=== PATIENT | female | born 1960 | race Caucasian/White ===

== ENCOUNTER → 2017-11-16 11:49 | Outpatient (CLI) | payer OTHER, SELFPAY ==
--- NOTE | 2017-11-16 | DI.MG.S_ITS ---
BILATERAL DIGITAL SCREENING MAMMOGRAM 3D/2D WITH CAD WITH AUGMENTATION: 11/16/2017 CLINICAL: Routine screening. Family history of breast cancer. Comparison is made to exams dated: 11/12/2016 mammogram, 11/26/2015 mammogram, and 11/23/2014 mammogram - [facility]. The tissue of both breasts is predominantly fatty. Current study was also evaluated with a Computer Aided Detection (CAD) system. Bilateral breast implants are stable and intact. No significant masses, calcifications, or other findings are seen in either breast. There has been no significant interval change. IMPRESSION: NEGATIVE There is no mammographic evidence of malignancy. A 1 year screening mammogram is recommended. This exam was interpreted at Station ID: [id number]. NOTE: For mammograms, a report in lay terms will be sent to the patient. Approximately 15% of breast malignancies will not be visualized mammographically. In the management of a palpable breast mass, a negative mammogram must not discourage biopsy of a clinically suspicious lesion. Electronically Signed By: Charlie allen/johnny:11/16/2017 15:06:50 letter sent: Normal Exam ACR BI-RADS Category 1: Negative [id number]
== END ==
PROVIDERS: Family Provider Family Medicine; PCP Family Medicine; Visit Provider Family Medicine
DX: Z12.31 Encounter for screening mammogram for malignant neoplasm of breast (principal); Z80.3 Family history of malignant neoplasm of breast
CPT/HCPCS: 77063; 77067

== ENCOUNTER → 2017-11-30 07:53 | Outpatient (CLI) | payer OTHER, SELFPAY ==
--- NOTE | 2017-11-30 | DI.ECHO.S_ITS ---
[facility] +---------+ : : [address] : [place] : : : : [id number] : : : : Phone: [phone]+ Echocardiogram Report + + :Name: PA CONSTANTINO Study Date: 11/30/2017 Height: 66 in : :[facility] Weight: 180 lb : : Gender: Female BSA: 1.9 m2 : :: 1960 Age: 56 yrs BP: 138/90 mmHg: :Reason For Study: Hypertension : : Performed By: Daniela Ingram : :Referring: DENY VERNON : + + Interpretation Summary 1) Normal left ventricular thickness, size, wall motion, and systolic function (EF 60-65%). 2) Normal right ventricular size and function. 3) No significant valvular abnormalities. 4) No prior Echo available for comparison. Procedure: A two-dimensional transthoracic echocardiogram with color flow and Doppler was performed. The study quality was technically adequate. There is no prior echocardiogram noted for this patient. The patient was in normal sinus rhythm during the exam. Left Ventricle: The left ventricle is normal in size, wall thickness, and systolic function without any focal wall motion abnormalities. The ejection fraction is estimated to be 60-65%. Assessment of diastolic parameters indicates normal left ventricular diastolic function and normal filling pressures. Right Ventricle: The right ventricle grossly appears normal in size with probable normal systolic function. Atria: The left atrial size is normal. Right atrial size is normal. The interatrial septum is intact with no evidence for an atrial septal defect. Mitral Valve: The mitral valve is grossly normal. There is trace mitral regurgitation. Aortic Valve: The aortic valve is trileaflet. The aortic valve opens well. No aortic regurgitation is present. Tricuspid Valve: The tricuspid valve is normal in structure and function. There is trace tricuspid regurgitation. The right ventricular systolic pressure is estimated at 25 mmHg assuming a right atrial pressure of 3 mm Hg. Pulmonic Valve: The pulmonic valve is not well seen, but is grossly normal. There is mild pulmonic regurgitation. Great Vessels: The aortic root is normal size. The dimensions of the ascending aorta are normal. The aortic arch is at the upper limits of normal in size. The IVC is of normal diameter and collapses greater than 50% with a sniff. This suggests a low right atrial pressure of 3 mm Hg. Pericardium/ Pleura There is no pericardial effusion. There is no pleural effusion. MMode/2D Measurements & Calculations LVIDd: 4.7 cm Ao root diam: 3.1 cm LVIDs: 2.8 cm Aortic Jxn: 2.8 cm FS: 39.4 % asc Aorta Diam: 3.3 cm EPSS: 1.2 cm Ao Arch Diam (Prox Trans): 3.0 cm IVSd: 0.84 cm LVPWd: 0.79 cm LV roberts. diameter/BSA (cm/m^2): 2.4 LV sys. diameter/BSA (cm/m^2): 1.5 LA dimension: 3.5 cm RA long axis: 4.6 cm LA A2 area: 21.5 cm2 RA area: 15.4 cm2 LA A4 area: 19.5 cm2 RA vol: 44.2 ml LA length (vol): 5.7 cm RA : 23.1 ml/m2 LA vol: 62.8 ml IVC diam: 1.8 cm LA vol index: 32.8 ml/m2 RVDd major: 5.7 cm RVD1 (basal): 3.2 cm RVD2 (mid): 2.6 cm Doppler Measurements & Calculations Ao V2 max: 134.5 cm/sec MV E max trevor: 74.0 cm/sec Ao V2 mean: 86.3 cm/sec MV A max trevor: 57.8 cm/sec Ao max P.2 mmHg MV E/A: 1.3 Ao mean P.5 mmHg Med Peak E' Trevor: 7.8 cm/sec Ao V2 VTI: 30.6 cm E/E' med: 9.5 Lat Peak E' Trevor: 10.5 cm/sec E/E' lat: 7.0 E/e' average: 8.3 MV dec time: 0.29 sec MV P1/2t: 85.9 msec TR max trevor: 234.8 cm/sec MV P1/2t max trevor: 73.7 cm/sec TR max P.1 mmHg MVA(P1/2t): 2.6 cm2 PA V2 max: 79.1 cm/sec PA V2 mean: 48.7 cm/sec PA mean P.1 mmHg PA Accel Time: 0.18 sec Reading Physician:01:00 PM
== END ==
PROVIDERS: Family Provider Family Medicine; PCP Family Medicine; Visit Provider Family Medicine
DX: I37.1 Nonrheumatic pulmonary valve insufficiency (principal); I10 Essential (primary) hypertension
CPT/HCPCS: 93306

== ENCOUNTER → 2018-10-27 14:09 | Outpatient (CLI) | payer OTHER, SELFPAY ==
--- NOTE | 2018-10-27 | DI.MG.S_ITS ---
BILATERAL DIGITAL DIAGNOSTIC MAMMOGRAM 3D/2D WITH AUGMENTATION: 10/27/2018 CLINICAL: Left breast lump. Comparison is made to exams dated: 11/16/2017 mammogram, 11/12/2016 mammogram, and 11/26/2015 mammogram - [facility]. There are scattered fibroglandular elements in both breasts. No significant masses, calcifications, or other findings are seen in either breast. IMPRESSION: INCOMPLETE: NEEDS ADDITIONAL IMAGING EVALUATION There is no abnormality seen in the left breast to correspond with the palpable abnormality at 12 o'clock, however, ultrasound is recommended. This exam was interpreted at Station ID: [id number]. NOTE: For mammograms, a report in lay terms will be sent to the patient. Approximately 15% of breast malignancies will not be visualized mammographically. In the management of a palpable breast mass, a negative mammogram must not discourage biopsy of a clinically suspicious lesion. Electronically Signed By: Ernesto buck/johnny:10/27/2018 15:42:28 ACR BI-RADS Category 0: Incomplete 3340F
--- NOTE | 2018-10-27 | DI.US.S_ITS ---
LIMITED ULTRASOUND OF LEFT BREAST: 10/27/2018 CLINICAL: Palpable left breast lump. Comparison is made to exams dated: 10/27/2018 mammogram, 11/16/2017 mammogram, 11/12/2016 mammogram, 11/26/2015 mammogram, and 11/23/2014 mammogram - [facility]. Color flow and real-time ultrasound of the left breast 12 o'clock region were performed on the areas of interest. There is 0.4 cm x 0.4 cm x 0.4 cm round cyst in the left breast at 12 o'clock which appears localized in the underlying musculature of the chest wall. This round cyst is hypoechoic with internal echoes and posterior acoustic enhancement. This correlates as palpated. Color flow imaging demonstrates that there is no vascularity present. IMPRESSION: PROBABLY BENIGN The 0.4 cm x 0.4 cm x 0.4 cm round cyst in the left breast is consistent with a complicated cyst and is probably benign. A follow-up ultrasound in 6 months is recommended. A follow-up ultrasound in 6 months is recommended to demonstrate stability. This exam was interpreted at Station ID: [id number]. Electronically Signed By: Ernesto Torres M.D. ddgalina/:10/27/2018 15:44:55 letter sent: Followup Recommended Ultrasound BI-RADS: 3 Probably benign
== END ==
PROVIDERS: PCP Family Medicine; Visit Provider Family Medicine
DX: R92.8 Other abnormal and inconclusive findings on diagnostic imaging of breast (principal); N60.02 Solitary cyst of left breast
CPT/HCPCS: 76642; 77066; G0279

== ENCOUNTER 2019-02-18 06:46 | Emergency (ER) | payer OTHER, SELFPAY ==
[2019-02-18 06:53] VITALS: BMI 26.1
[2019-02-18 07:00] VITALS: BP 157/95; PULSE 61; RESP 16; O2SAT 100
[2019-02-18 07:15] VITALS: TEMP 36.9
[2019-02-18 07:25] VITALS: BP 159/102; PULSE 62; RESP 20; O2SAT 100
--- NOTE | 2019-02-18 07:25 | ED.DIZZY ---
HPI - Dizziness General Chief Complaint: Dizziness Stated Complaint: WHOOZY,VERTIGO EFFECT Time Seen by Provider: 02/18/19 07:21 Source: patient Mode of arrival: Family Vehicle Limitations: no limitations History of Present Illness HPI Narrative: This is a 58 year female comes to the emergency department with complaint of feeling woozy. Patient states last night she took her methotrexate which she normally takes once weekly. She states that this is a new bottle but her normal medication. Patient states that she had sort of a vertigo like symptoms for the room was spinning but it went away fairly quickly. She states she had an episode once before about 8 months ago that was similar. She states she went to bed and was up twice overnight and felt very woozy sort of like she was falling to the right. Patient states she did have a headache, she did have vision changes, no numbness, tingling or weakness. She denies any spinning sensation to the room. No chest pain or shortness of breath, she denies any issues with vomiting and no issues with bowel movements or urination. This morning she got up again was in the kitchen and felt very lightheaded like she was going to pass out and did feel nauseated at that time. Patient denies symptoms if she is lying or not moving. She takes methotrexate for rheumatoid arthritis, venlafaxine for seasonal affective disorder, she takes metoprolol for hypertension in the a.m. and p.m. and had her morning dose but after the most recent episode. She has had , appendectomy and breast implants. She quit smoking many years ago, alcoholic couple times a month and denies illicit. Related Data Allergies Allergy/AdvReac Type Severity Reaction Status Date / Time codeine [CODEINE] Allergy Unknown Unverified 07/29/17 13:10 Sulfa (Sulfonamide Allergy Unknown Unverified 07/29/17 13:10 Antibiotics) [SULFA (SULFONAMIDE ANTIBIOTICS)] Review of Systems Review of Systems ROS Unobtainable: All systems reviewed & are unremarkable except as noted in HPI and below Constitutional Constitutional: Denies chills, Denies fever(s), Denies headache(s), Denies lethargy and Denies weakness Eyes Eyes: Denies change in vision ENT Ears, Nose, Mouth, and Throat: Reports vertigo, Reports dizziness and Denies headache(s) Cardiovascular Cardiovascular: Denies chest pain, Denies diaphoresis, Denies syncope, Denies irregular heart rhythm, Reports lightheadedness, Denies palpitations, Denies dyspnea, Denies dyspnea on exertion and Denies orthopnea Respiratory Respiratory: Denies change in phlegm color, Denies chest congestion, Denies cough, Denies dyspnea, Denies dyspnea on exertion and Denies wheezing Gastrointestinal Gastrointestinal: Denies abdominal pain, Denies change in bowel habits, Denies constipation, Denies diarrhea, Reports nausea and Denies vomiting Genitourinary Genitourinary: Denies hematuria, Denies urinary frequency, Denies dysuria, Denies flank pain, Denies urinary incontinence, Denies urinary hesitancy and Denies urinary urgency Musculoskeletal Musculoskeletal: Denies muscle weakness, Denies numbness and Denies tingling Neurologic Neurologic: Reports as per HPI, Denies abnormal speech, Denies confusion, Reports vertigo, Reports dizziness, Denies syncope, Denies headache(s), Denies focal weakness, Denies numbness, Denies sensory deficit, Denies tingling, Denies paresthesias and Denies weakness Psychiatric Psychiatric: Denies confusion Endocrine Endocrine: Denies palpitations Allergic/Immunologic Allergic/Immunologic: Denies wheezing Patient History Medical History Hypertension (Acute) Rheumatoid arthritis (Acute) Seasonal affective disorder (Acute) Surgical History History of breast augmentation Hx of appendectomy (Acute) Status post delivery Social History Smoking Status: Former smoker alcohol intake frequency: a few times a month Alcohol type: wine and hard liquor Substance Use Type: does not use Exam Narrative Exam Narrative: GEN: well nourished, well appearing female, alert and oriented x 3, patient appears to be in mild distress. HEENT: Atraumatic, pupils are equal round reactive to light, extraocular movements are intact, nares are clear, TMs are clear with no fluid, there is no conjunctival pallor. Throat is clear without any exudates, erythema, tonsillar enlargement or uvular deviation, no facial droop. HEART: Regular rate and rhythm without murmur, clicks, rubs. Pulses are equal in upper and lower extremities LUNGS:Lungs clear to auscultation, no wheezes, rales, crackles, chest moves symmetrically, no tachypnea or accessory muscle use ABD:bowel sounds normal, soft, non-tender, no guarding, rebound, rigidity, no masses noted, no hepatosplenomegaly MSCL: Non-tender, no muscle atrophy, full range of motion, normal gait NEURO:CN 2-12 intact, sensation normal, Initial Vital Signs Initial Vital Signs: Vital Signs Pulse Rate 61 02/18/19 07:00 Respiratory Rate 16 02/18/19 07:00 Blood Pressure 157/95 H 02/18/19 07:00 Pulse Oximetry 100 02/18/19 07:00 Course Orders Ordered: Discontinued Medications Sodium Chloride (Normal Saline 0.9%) 1,000 mls @ 1,000 mls/hr IV BOLUS ONE Stop: 02/18/19 08:33 Last Infusion: 02/18/19 09:35 Dose: 0 mls/hr Documented by: Admin: 02/18/19 07:41 Dose: 1,000 mls/hr Documented by: MINDY Vital Signs Vital signs: Vital Signs - 8 hr 02/18/19 07:00 02/18/19 07:15 02/18/19 07:25 Temperature 98.4 F Pulse Rate 61 62 Pulse Rate [Orthostatic Lying] Pulse Rate [Orthostatic Sitting] Pulse Rate [Orthostatic Standing] Respiratory Rate 16 20 Blood Pressure [Orthostatic Lying] Blood Pressure [Orthostatic Sitting] Blood Pressure [Orthostatic Standing] Blood Pressure [Right Arm] 157/95 H 159/102 H Pulse Oximetry 100 100 02/18/19 08:00 02/18/19 09:17 Temperature Pulse Rate 58 L 63 Pulse Rate [Orthostatic Lying] 59 L Pulse Rate [Orthostatic Sitting] 63 Pulse Rate [Orthostatic Standing] 63 Respiratory Rate 16 16 Blood Pressure [Orthostatic Lying] 153/82 H Blood Pressure [Orthostatic Sitting] 152/85 H Blood Pressure [Orthostatic Standing] 157/95 H Blood Pressure [Right Arm] 144/77 H Pulse Oximetry 100 98 MDM - Dizziness Lab Data Attestation: I reviewed the patient's lab results. Result diagrams: 02/18/19 07:34 02/18/19 07:34 Labs: Lab Results 11/01/19 11/01/19 Range/Units 07:34 07:34 WBC 8.2 (4.5-11.0) X10^3/uL RBC 4.63 (4.0-5.2) X10^6/uL Hgb 14.0 (12.0-16.0) g/dL Hct 41.7 (36-46) % MCV 90.0 (80-100) fL MCH 30.3 (26-34) PG MCHC 33.6 (30-36) % RDW 13.9 (11.6-14.8) % Plt Count 354 (150-400) X10^3/uL Neut % (Auto) 73.1 (50-75) % Lymph % (Auto) 20.0 L (25-40) % Haskell % (Auto) 4.8 (3-14) % Eos % (Auto) 1.8 L (2-4) % Baso % (Auto) 0.3 (0-2) % Neut # (Auto) 6000 (4059-7216) /uL Lymph # (Auto) 1600 (8854-8595) /uL Haskell # (Auto) 400 (0-900) /uL Eos # (Auto) 100 (0-450) /uL Baso # (Auto) 0 (0-100) /uL Sodium 142 (137-145) mmol/L Potassium 4.1 (3.4-5.1) mmol/L Chloride 105 (98-107) mmol/L Carbon Dioxide 29 (22-32) mmol/L BUN 20 H (7-17) mg/dL Creatinine 0.50 L (0.52-1.04) mg/dL Estimated GFR > 60.0 (>60) mL/min BUN/Creatinine Ratio 40.0 H (6-22) Glucose 102 H (70-100) mg/dL Calcium 9.1 (8.4-10.2) mg/dL Total Bilirubin 0.9 (0.2-1.3) mg/dL AST 23 (14-36) IU/L ALT 27 (<35) IU/L Alkaline Phosphatase 89 (38-126) U/L Troponin I < 0.012 (0.01-0.034) ng/mL Total Protein 6.7 (6.3-8.2) g/dL Albumin 4.4 (3.5-5.0) g/dL Globulin 2.3 (1.7-4.1) g/dL Albumin/Globulin Ratio 1.9 (1.0-2.8) Imaging Data Chest x-ray: Radiologist's impression: [address] [address] XRay Report Signed Patient: Joyce Marrero AMR#: [id number] : 2Acct:[id number] Age/Sex: 58 / FDate of Service: 02/18/19 Loc: ED Accession Number: [id number] Procedure: XR chest 1V Ordering Provider: Funmi Cope D.O. PROCEDURE: XR CHEST 1V INDICATIONS: dizziness/lightheadedness TECHNIQUE: One view of the chest was acquired. COMPARISON: [facility], , CHEST 2 VIEW, 02/21/2014, 13:43. FINDINGS: Surgical changes and devices: None. Lungs and pleura: Minimal increased vascularity. Mediastinum: Mediastinal contours appear normal. Heart size is normal. Bones and chest wall: No suspicious bony lesions. Overlying soft tissues appear unremarkable. IMPRESSION: Minimal increased vascularity. Dictated by: Liliam Shea M.D. on 02/18/2019 at 8:12 Approved by: Liliam Shea M.D. on 02/18/2019 at 8:12 ECG Data Attestation: I personally reviewed and interpreted this ECG as follows: Prior ECG tracings: not available for review Interpretation: sinus bradycardia, rate of 175, qrs of 102, qtc 407. No ST elevation/depression appreciated. No prior for comparison. MDM Narrative Medical decision making narrative: orthostatics were recorded after patient received 1L NS. Patient is feeling much better and states she was asymptomatic after fluids. She was able to ambulate to the bathroom, she did realize to give a urine sample and did not get 1 for us. We discussed trying again although my suspicion for UTI or infection is low as the cause of her symptoms. She defers. We discussed potential causes for her symptoms today and that it sounds like at least her initial episode was likely vertigo the other episodes following less likely so particularly this morning in the kitchen. Patient and family are comfortable with the plan. Discussed signs and symptoms to watch for and reasons to return. Discharge Plan Departure Patient Disposition: Home Clinical Impression: Dizziness Discharge Date/Time: 02/18/19 09:45 Instructions: DI for Dizziness-Nonvertigo Activity Restrictions/Additional Instructions: Follow up with your primary care physician in the next week for recheck. Call for an appointment. You may continue home medications as prescribed. Make sure you are drinking plenty of fluids. Return to the emergency department for fevers greater 100.4 F, sudden severe headaches, new vision changes, new numbness, weakness or inability to use extremities, new speech changes, passing out, persistent vomiting, new chest pain or shortness of breath or other new or concerning symptoms. Referrals: Gale Angelo MD [Primary Care Provider] -
--- NOTE | 2019-02-18 07:35 | DI.RAD.S_ITS ---
PROCEDURE: XR CHEST 1V INDICATIONS: dizziness/lightheadedness TECHNIQUE: One view of the chest was acquired. COMPARISON: [facility], , CHEST 2 VIEW, 02/21/2014, 13:43. FINDINGS: Surgical changes and devices: None. Lungs and pleura: Minimal increased vascularity. Mediastinum: Mediastinal contours appear normal. Heart size is normal. Bones and chest wall: No suspicious bony lesions. Overlying soft tissues appear unremarkable. IMPRESSION: Minimal increased vascularity. Dictated by: Liliam Shea M.D. on 02/18/2019 at 8:12 Approved by: Liliam Shea M.D. on 02/18/2019 at 8:12
[2019-02-18 07:40] LABS: Add Manual Diff / Slide Review NO; Basophils Absolute Auto 0 /uL (0-100); Basophils Percent Auto 0.3 % (0-2); Eosinophils Absolute Auto 100 /uL (0-450); Eosinophils Percent Auto 1.8 % (2-4); Hematocrit 41.7 % (36-46); Lymphocytes Absolute Auto 1600 /uL (1100-4500); Mean Corpuscular HGB Conc 33.6 % (30-36); Mean Corpuscular Hemoglobin 30.3 PG (26-34); Monocytes Absolute Auto 400 /uL (0-900); Monocytes Percent Auto 4.8 % (3-14); Neutrophils Absolute Auto 6000 /uL (1500-7000); Neutrophils Percent Auto 73.1 % (50-75); Platelet Count 354 X10^3/uL (150-400); Red Blood Cell Count 4.63 X10^6/uL (4.0-5.2); Red Cell Distribution Width 13.9 % (11.6-14.8); White Blood Cell Count 8.2 X10^3/uL (4.5-11.0)
[2019-02-18] MEDS: SODIUM CHLORIDE 0.9% 1,000 ML 1000 ML IV (07:41)
[2019-02-18 07:53] LABS: Alanine Aminotransferase 27 IU/L (<35); Albumin 4.4 g/dL (3.5-5.0); Albumin Globulin Ratio 1.9 (1.0-2.8); Alkaline Phosphatase 89 U/L (38-126); Aspartate Aminotransferase 23 IU/L (14-36); Bilirubin Total 0.9 mg/dL (0.2-1.3); Blood Urea Nitrogen 20 mg/dL (7-17); Calcium 9.1 mg/dL (8.4-10.2); Carbon Dioxide 29 mmol/L (22-32); Chloride 105 mmol/L (98-107); Estimated Glomerular Filt Rate > 60.0 mL/min (>60); Globulin 2.3 g/dL (1.7-4.1); Glucose 102 mg/dL (70-100); HEMOLYSIS 19 (0-50); Potassium 4.1 mmol/L (3.4-5.1); Sodium 142 mmol/L (137-145); Total Protein 6.7 g/dL (6.3-8.2)
[2019-02-18 08:00] VITALS: BP 144/77; PULSE 58; RESP 16; O2SAT 100
[2019-02-18 08:04] LABS: Troponin I < 0.012 ng/mL (0.01-0.034)
[2019-02-18 09:17] VITALS: BP 152/85; BP 153/82; BP 157/95; PULSE 59; PULSE 63; RESP 16; O2SAT 98
[2019-02-18 09:45] VITALS: BP 140/86; PULSE 62; RESP 18; O2SAT 99
== END 2019-02-18 09:45 | disposition home or self-care (01) ==
PROVIDERS: Emergency Provider Emergency Medicine; PCP Family Medicine
DX: R42 Dizziness and giddiness (principal); R00.1 Bradycardia, unspecified
CPT/HCPCS: 36415; 71045; 80053; 84484; 85025; 93005; 93010; 96360; 96361; 99283; 99285

== ENCOUNTER → 2019-04-15 10:03 | Outpatient (CLI) | payer OTHER, SELFPAY ==
--- NOTE | 2019-04-15 | DI.US.S_ITS ---
ULTRASOUND OF LEFT BREAST: 04/15/2019 CLINICAL: 6 month follow-up of the left breast. Comparison is made to exams dated: 10/27/2018 ultrasound, 10/27/2018 mammogram, 11/16/2017 mammogram, 11/12/2016 mammogram, 11/26/2015 mammogram, and 11/23/2014 mammogram - [facility]. Color flow and real-time ultrasound of the left breast were performed. Ruiz scale images of the real-time examination were reviewed. There is a 0.4 cm x 0.3 cm x 0.4 cm round cyst in the left breast at 12 o'clock middle depth 3 cm from the nipple. This round cyst is hypoechoic with internal echoes and posterior acoustic enhancement. This abnormality is not significantly changed. Color flow imaging demonstrates that there is no vascularity present. IMPRESSION: PROBABLY BENIGN The 0.4 cm x 0.3 cm x 0.4 cm round cyst in the left breast is not significantly changed and is consistent with a complicated cyst and is probably benign. A follow-up bilateral mammogram and a left breast ultrasound in 6 months is recommended to demonstrate continued stability. This exam was interpreted at Station ID: [id number]. Electronically Signed By: Pilo Hightower M.D. aty/:04/15/2019 11:01:59 letter sent: Followup Recommended Ultrasound BI-RADS: 3 Probably benign
== END ==
PROVIDERS: PCP Family Medicine; Visit Provider Family Medicine
DX: R92.8 Other abnormal and inconclusive findings on diagnostic imaging of breast (principal); N60.02 Solitary cyst of left breast
CPT/HCPCS: 76642

== ENCOUNTER → 2019-11-21 13:23 | Outpatient (CLI) | payer OTHER, SELFPAY ==
--- NOTE | 2019-11-21 | DI.MG.S_ITS ---
BILATERAL DIGITAL DIAGNOSTIC MAMMOGRAM 3D/2D SHORT-TERM FOLLOW-UP WITH AUGMENTATION: 11/21/2019 CLINICAL: Patient returns for a 6 month follow up of the left breast, due for bilateral exam. Comparison is made to exams dated: 10/27/2018 mammogram, 11/16/2017 mammogram, and 11/12/2016 mammogram - [facility]. There are scattered fibroglandular elements in both breasts. No significant masses, calcifications, or other findings are seen in either breast. Bilateral breast implants are noted and unchanged in appearance. IMPRESSION: INCOMPLETE: NEEDS ADDITIONAL IMAGING EVALUATION There is no mammographic abnormality seen in the left breast to correspond with the palpable abnormality previously described at 12 o'clock, however, ultrasound is recommended to evaluate previously described complicated cysts in the same area. The ultrasound is scheduled to immediately follow this exam. This exam was interpreted at Station ID: [id number]. NOTE: For mammograms, a report in lay terms will be sent to the patient. Approximately 15% of breast malignancies will not be visualized mammographically. In the management of a palpable breast mass, a negative mammogram must not discourage biopsy of a clinically suspicious lesion. Electronically Signed By: Pilo Hightower M.D. aty/:11/22/2019 11:14:50 ACR BI-RADS Category 0: Incomplete 3340F
--- NOTE | 2019-11-21 | DI.US.S_ITS ---
ULTRASOUND OF LEFT BREAST: 11/21/2019 CLINICAL: Lt breast ABN Mammo. Comparison is made to exams dated: 11/21/2019 mammogram, 04/15/2019 ultrasound, 10/27/2018 ultrasound, 10/27/2018 mammogram, and 11/16/2017 mammogram - [facility]. Color flow and real-time ultrasound of the left breast were performed. Ruiz scale images of the real-time examination were reviewed. There is a 0.4 cm x 0.3 cm x 0.5 cm round cyst in the left breast at 12 o'clock middle depth 3 cm from the nipple. As before, it appears to be localized in the chest wall musculature. This round cyst is hypoechoic with internal echoes and posterior acoustic enhancement. This abnormality is not significantly changed. Color flow imaging demonstrates that there is no vascularity present. IMPRESSION: PROBABLY BENIGN The 0.4 cm x 0.3 cm x 0.5 cm round cyst in the left breast is consistent with a complicated cyst and is probably benign. A follow-up left mammogram and left ultrasound in 6 months is recommended to demonstrate continued stability. Findings and recommendations were conveyed to the patient during today's visit. This exam was interpreted at Station ID: [id number]. Electronically Signed By: Pilo Hightower M.D. aty/:11/21/2019 15:38:51 letter sent: Followup Recommended Ultrasound BI-RADS: 3 Probably benign
== END ==
PROVIDERS: PCP Family Medicine; Referring Provider Family Medicine; Visit Provider Family Medicine
DX: R92.8 Other abnormal and inconclusive findings on diagnostic imaging of breast (principal); N60.02 Solitary cyst of left breast; Z98.82 Breast implant status
CPT/HCPCS: 76642; 77066; G0279

== ENCOUNTER → 2020-06-14 13:47 | Outpatient (CLI) | payer OTHER, SELFPAY ==
--- NOTE | 2020-06-14 | DI.US.S_ITS ---
LIMITED ULTRASOUND OF LEFT BREAST: 06/14/2020 CLINICAL: Patient returns today to evaluate a focal asymmetry in the left breast. Comparison is made to exams dated: 06/14/2020 mammogram, 11/21/2019 mammogram, 11/21/2019 ultrasound, 04/15/2019 ultrasound, 10/27/2018 ultrasound, and 10/27/2018 mammogram - [facility]. Ultrasound of the left breast 12 o'clock region was performed. There is a stable oval cystic structure in the 12:00 posiition along the implant surface deep to the pectoral muscular surface, not associated with breast tissue. Smooth indentation of the underlying implant suggests is may be associated with the inflation port of the implant, when comparing to its position on mammogram. There is no change in size of this structure over time and no disruption in the superficial muscular layer. Color flow imaging demonstrates that there is no vascularity present. No significant abnormalities were seen sonographically in the left breast. IMPRESSION: BENIGN There is no sonographic evidence of malignancy. The stable oval cyst is likely associated with the left breast implant and is benign. Return to annual mammogram screening schedule is recommended. Findings and recommendations were conveyed to the patient at time of exam. This exam was interpreted at Station ID: [id number]. Electronically Signed By: Belkys dior/:06/14/2020 16:09:19 letter sent: Normal Exam Ultrasound BI-RADS: 2 Benign
--- NOTE | 2020-06-14 | DI.MG.S_ITS ---
UNILATERAL LEFT DIGITAL DIAGNOSTIC MAMMOGRAM 3D/2D WITH AUGMENTATION: 06/14/2020 CLINICAL: Patient returns for a 6 month follow up of the left breast. Comparison is made to exams dated: 11/21/2019 mammogram, 10/27/2018 mammogram, and 11/16/2017 mammogram - [facility]. There are scattered fibroglandular elements in left breast. No significant masses, calcifications, or other findings are seen in the breast. IMPRESSION: INCOMPLETE: NEEDS ADDITIONAL IMAGING EVALUATION Stable mammograms without evidence of malignancy. The implants have a stable appearance. Ultrasound is scheduled to follow for a 12:00 left breast cyst not seen on mammography. This was performed immediately following this exam. This exam was interpreted at Station ID: [id number]. NOTE: For mammograms, a report in lay terms will be sent to the patient. Approximately 15% of breast malignancies will not be visualized mammographically. In the management of a palpable breast mass, a negative mammogram must not discourage biopsy of a clinically suspicious lesion. Electronically Signed By: Belkys dior/:06/14/2020 16:02:55 ACR BI-RADS Category 0: Incomplete [id number]
== END ==
PROVIDERS: PCP Family Medicine; Referring Provider Family Medicine; Visit Provider Family Medicine
DX: R92.8 Other abnormal and inconclusive findings on diagnostic imaging of breast (principal); N60.02 Solitary cyst of left breast; Z98.82 Breast implant status
CPT/HCPCS: 76642; 77065; G0279

== ENCOUNTER → 2020-12-08 07:44 | Outpatient (CLI) | payer OTHER, SELFPAY ==
--- NOTE | 2020-12-08 07:47 | DI.MG.S_ITS ---
BILATERAL DIGITAL SCREENING MAMMOGRAM 3D/2D WITH CAD WITH AUGMENTATION: 12/08/2020 CLINICAL: Routine screening. Family history of breast cancer. Comparison is made to exams dated: 06/14/2020 mammogram, 11/21/2019 mammogram, and 10/27/2018 mammogram - [facility]. There are scattered fibroglandular elements in both breasts. Current study was also evaluated with a Computer Aided Detection (CAD) system. Bilateral breast implants are stable. No significant masses, calcifications, or other findings are seen in either breast. There has been no significant interval change. IMPRESSION: NEGATIVE There is no mammographic evidence of malignancy. A 1 year screening mammogram is recommended. This exam was interpreted at Station ID: [id number]. NOTE: For mammograms, a report in lay terms will be sent to the patient. Approximately 15% of breast malignancies will not be visualized mammographically. In the management of a palpable breast mass, a negative mammogram must not discourage biopsy of a clinically suspicious lesion. Electronically Signed By: Anatoly Rapp acr/johnny:12/10/2020 10:08:44 letter sent: Normal Exam ACR BI-RADS Category 1: Negative 3341F
== END ==
PROVIDERS: PCP Family Medicine; Referring Provider Family Medicine; Visit Provider Family Medicine
DX: Z12.31 Encounter for screening mammogram for malignant neoplasm of breast (principal); Z80.3 Family history of malignant neoplasm of breast
CPT/HCPCS: 77063; 77067

== ENCOUNTER → 2021-09-05 10:11 | Outpatient (CLI) | payer OTHER, SELFPAY ==
--- NOTE | 2021-09-05 | DI.US.S_ITS ---
PROCEDURE: US ABDOMEN LIMITED INDICATIONS: RUQ PAIN TECHNIQUE: Real-time scanning was performed of the right upper quadrant, with image documentation. COMPARISON: None. FINDINGS: Liver: Measures 13.9 cm. Increased in echogenicity. Hepatopetal flow. Gallbladder: Nondilated. Filled with gallstones. Normal gallbladder wall thickness. No pericholecystic fluid. Negative sonographic Chicas's sign. Biliary ducts: Intrahepatic bile ducts are non-dilated. Extrahepatic bile duct caliber measures 3 mm. Normal is 6-7 mm or less in diameter, or 10 mm or less post-cholecystectomy. Pancreas: Visualized portions of the pancreas are sonographically normal. IMPRESSION: 1. No acute cholecystitis. Gallbladder is filled with gallstones. 2. Increased hepatic echogenicity most consistent with hepatic steatosis. Other forms of hepatocellular disease could have similar appearance. Dictated by: Brice Rizvi M.D. on 09/06/2021 at 13:15 Approved by: Brice Rizvi M.D. on 09/06/2021 at 13:17
== END ==
PROVIDERS: PCP Family Medicine; Referring Provider Family Medicine; Visit Provider Family Medicine
DX: R10.11 Right upper quadrant pain; K80.20 Calculus of gallbladder without cholecystitis without obstruction
CPT/HCPCS: 76705

== ENCOUNTER → 2021-09-30 13:28 | Outpatient (CLI) | payer OTHER, SELFPAY ==
[2021-09-30 14:08] LABS: COVID19 -Nasal RAPID Negative (Negative)
== END ==
PROVIDERS: PCP Family Medicine; Visit Provider Surgery
DX: Z20.822 Contact with and (suspected) exposure to COVID-19 (principal); Z01.812 Encounter for preprocedural laboratory examination
CPT/HCPCS: 87635; C9803

== ENCOUNTER 2021-10-01 08:38 | Day surgery (SDC) | payer OTHER, SELFPAY ==
[2021-09-25 13:49] VITALS: BMI 31.3
[2021-10-01] VITALS (8 sets, daily range): BP systolic 100–148; BP diastolic 61–90; PULSE 66–79; RESP 10–23; TEMP 36.6–37.4; O2SAT 90–99; BMI 30.7
--- NOTE | 2021-10-01 | PATH_ITS ---
[facility] Accession Number: [id number] No. of containers..01 Tissue . 01 Material submitted: . gallbladder - GALLBLADDER AND CONTENTS . 01 Clinical history: . SDC CALCULUS OF GALLBLADDER WITHOUT CHOLECYSTITIS . 01 Diagnosis: Gallbladder, Cholecystectomy: Chronic cholecystitis with cholelithiasis. Negative for dysplasia and malignancy. V 10/04/2021 1319 Local . 01 Electronically signed: . Tati Vasquez MD, Pathologist NPI- [id number] . 01 Gross description: . Received in formalin, labeled with the patient's name and gallbladder and contents, and consists of an intact gallbladder measuring 8.6 x 2.5 x 2.5 cm. The serosa is congested, smooth, and glistening. The hepatic surface is rough and unremarkable. The cystic duct is received clamped and measures 0.2 cm in diameter, and is inked blue. The pericystic lymph node candidate is identified measuring 1.6 cm in greatest dimension. Opening the specimen reveals the lumen to be filled with numerous yellow, multifaceted calculi measuring up to 2.1 cm in greatest dimension admixed with green viscous bile. The mucosa is green-brown, velvety, and focally denuded. No yellow discoloration, polyps, or lesions are identified. The heart average 0.3 cm in thickness. Club Lounge Attendant sections to include the cystic duct margin, one-half of the lymph node candidate, and inside technical sales representative cross-sections are submitted in cassette A1. ([id number]) /Jennifer 10/04/2021 0248 Local . 01 Pathologist provided ICD-10: K80.60 . 01 CPT . 473919 Specimen Comment: A courtesy copy of this report has been sent to [phone] Performed at: 01 [facility] [address], [place], [place] [id number] MD Ernesto Dominguez MD Phone: [phone]
[2021-10-01] MEDS: LACTATED RINGERS 1,000 ML 42 ML IV (10:05)
--- NOTE | 2021-10-01 10:28 | PM.PREOP ---
Pre-operative Note COVID-19 COVID-19 status: Negative Result date/Date tested (Pos, Neg/Pending): 09/30/21 Interval Note History & Physical reviewed/Exam performed by Physician: Yes Changes to H&P: No ASA Class (for procedural sedation): II
[2021-10-01] MEDS: CEFAZOLIN 2 GM/20 ML SYRINGE IV (10:59)
--- NOTE | 2021-10-01 11:17 | SUR.OPER ---
Supine on padded OR bed, head on pillow, arms secured on padded arm boards at <90 degrees abduction, legs uncrossed, safety belt at thigh, tape over blanket over lower legs. FOOTBOARD SECURED TO BED.
[2021-10-01] MEDS: BUPIVACAINE 0.5% (PF) VIAL 30 ML INJ (11:26)
[2021-10-01] MEDS: LIDOCAINE 1% W/EPI 20 ML INJ (11:27)
--- NOTE | 2021-10-01 12:08 | P.OP_ITS ---
Operative Date/Time/Diagnoses Date of procedure: 10/01/21 Time of procedure: 12:08 Pre-op diagnosis: Gallstones Post-op diagnosis: same Procedure & Clinicians Procedure: Laparoscopic cholecystectomy Same procedure as scheduled: Yes Surgeon: Jak Burk Operative Notes Procedure in detail: The patient was given preoperative antibiotic. The patient was brought to the operating room, placed on the table in the supine position. General endotracheal anesthesia was induced. The abdomen was prepped and draped. A time-out was performed. We made a 1 cm infraumbilical incision. We dissected down to the base of the umbilical stalk using cautery. We grasped the umbilical stalk with a Paco clamp to elevate the abdominal wall. We scored the fascia in the midline with cautery 1 cm. We pierced the peritoneum with a Peon clamp. The David port was placed and the abdomen was insufflated to 15 mmHg. A 5 mm 30 degree laparoscopic was inserted. There was no evidence of any injury from the entry. Next, we placed 5 mm ports in the subxiphoid position and right upper quadrant at the midclavicular line and anterior axillary line. The patient was then positioned in reverse Trendelenburg and the table was tilted to the left. The gallbladder was grasped at the dome and retracted cephalad. There were some adhesions of mesenteric tissue to the gallbladder which were carefully dissected with cautery to allow full retraction of the gallbladder. We then dissected the cystic structures with a combination of hook cautery and blunt dissection. We obtained a critical view. We placed clips on the cystic duct and artery and divided the cystic duct and artery sharply between the cl ips. The gallbladder was then dissected off the liver and placed in a specimen retrieval bag. We irrigated the right upper quadrant and all the aspirate returned clear. We then removed the 5 mm ports under direct vision we removed the David port. We had to sharply extend the infraumbilical incision to about 2 cm to extract the specimen. We then injected some local into the fascia and closed the fascia with 3 interrupted 0 Vicryl sutures. The skin incisions were closed with 4 Monocryl and Steri-Strips were applied. Band-Aids were applied over the Steri-Strips. EBL: 10 mL Specimen: Gallbladder Post-operative Condition: stable Disposition: PACU
[2021-10-01] MEDS: OXYCODONE/ACETAMINOPHEN 5/325 TABLET 1 TAB PO (12:23)
--- NOTE | 2021-10-01 12:32 | SUR.PHASEI ---
Pt with continuious dry cough, no wheezing. Consulted with Dr. Chanel, humidified air applied. Also given cepachol lozenge.
[2021-10-01] MEDS: BENZOCAINE/MENTHOL 1 LOZ PKT 1 EACH PO (12:37)
--- NOTE | 2021-10-01 13:20 | SUR.PHASEII ---
Cough better, but not resolved, states pain controlled, ready to go, d/c instructions discussed, voiced an understanding. Pt left when ready and left in stable condition.
== END 2021-10-01 13:15 | disposition home or self-care (01) ==
PROVIDERS: PCP Family Medicine; Referring Provider Surgery; Visit Provider Surgery
PROC: 0FT44ZZ Resection of Gallbladder, Percutaneous Endoscopic Approach (ICD-10-PCS; CPT 47562; principal; 2021-10-01 10:45)
DX: K80.10 Calculus of gallbladder with chronic cholecystitis without obstruction (principal); M06.9 Rheumatoid arthritis, unspecified; I10 Essential (primary) hypertension
CPT/HCPCS: 47562; J0690; J1100; J1885; J2250; J2405; J2704; J3010

== ENCOUNTER → 2021-12-03 07:37 | Outpatient (CLI) | payer OTHER, SELFPAY ==
[2021-12-03 08:38] LABS: Add Manual Diff / Slide Review NO; Basophils Absolute Auto 100 /uL (0-100); Basophils Percent Auto 0.7 % (0-2); Eosinophils Absolute Auto 200 /uL (0-450); Eosinophils Percent Auto 2.2 % (2-4); Hematocrit 39.6 % (36-46); Hemoglobin 13.4 g/dL (12.0-16.0); Lymphocytes Absolute Auto 2200 /uL (1100-4500); Lymphocytes Percent Auto 30.8 % (25-40); Mean Corpuscular HGB Conc 33.7 % (30-36); Mean Corpuscular Hemoglobin 29.2 PG (26-34); Mean Corpuscular Volume 86.5 fL (80-100); Monocytes Absolute Auto 400 /uL (0-900); Monocytes Percent Auto 5.9 % (3-14); Neutrophils Absolute Auto 4300 /uL (1500-7000); Neutrophils Percent Auto 60.4 % (50-75); Platelet Count 365 X10^3/uL (150-400); Red Blood Cell Count 4.58 X10^6/uL (4.0-5.2); Red Cell Distribution Width 14.3 % (11.6-14.8); White Blood Cell Count 7.2 X10^3/uL (4.5-11.0)
[2021-12-03 09:25] LABS: Alanine Aminotransferase 22 IU/L (<35); Albumin 4.2 g/dL (3.5-5.0); Albumin Globulin Ratio 1.8 (1.0-2.8); Alkaline Phosphatase 82 U/L (38-126); Aspartate Aminotransferase 21 IU/L (14-36); BUN Creatinine Ratio 20.6 (6-22); Bilirubin Total 0.9 mg/dL (0.2-1.3); Blood Urea Nitrogen 13 mg/dL (7-17); Calcium 9.1 mg/dL (8.4-10.2); Carbon Dioxide 29 mmol/L (22-32); Chloride 105 mmol/L (98-107); Cholesterol 180 mg/dL (140-199); Estimated Glomerular Filt Rate > 60 mL/min (>60); Globulin 2.3 g/dL (1.7-4.1); Glucose 88 mg/dL (70-100); HDL Cholesterol 45 mg/dL (40-60); HEMOLYSIS < 15 (0-50); LDL Cholesterol Calculated 123 mg/dL (<100); Potassium 4.4 mmol/L (3.4-5.1); Sodium 141 mmol/L (137-145); Total Protein 6.5 g/dL (6.3-8.2); Triglycerides 62 mg/dL (35-150)
[2021-12-03 12:57] LABS: TSH w/ Reflex to FT4 0.67 uIU/mL (0.47-4.68)
== END ==
PROVIDERS: PCP Family Medicine; Referring Provider Family Medicine; Visit Provider Family Medicine
DX: Z00.00 Encounter for general adult medical examination without abnormal findings (principal); I10 Essential (primary) hypertension; M06.00 Rheumatoid arthritis without rheumatoid factor, unspecified site; F33.0 Major depressive disorder, recurrent, mild; F41.1 Generalized anxiety disorder
CPT/HCPCS: 80053; 80061; 84443; 85025

== ENCOUNTER → 2021-12-11 10:16 | Outpatient (CLI) | payer OTHER, SELFPAY ==
[2021-12-11 11:04] LABS: COVID19 -Nasal RAPID Negative (Negative)
== END ==
PROVIDERS: PCP Family Medicine; Visit Provider Surgery
DX: Z20.822 Contact with and (suspected) exposure to COVID-19 (principal); Z01.812 Encounter for preprocedural laboratory examination
CPT/HCPCS: 87635; C9803

== ENCOUNTER 2021-12-12 12:16 | Day surgery (SDC) | payer OTHER, SELFPAY ==
[2021-12-12 12:32] VITALS: BP 124/82; PULSE 68; RESP 17; TEMP 36.6; O2SAT 95; BMI 30.7
--- NOTE | 2021-12-12 13:51 | PM.HP.1 ---
History of Present Illness History of Present Illness Date Patient Seen: 12/12/21 Time Patient Seen: 13:51 Chief complaint: SCREENING COLONOSCOPY Narrative: Joyce is here for her colonoscopy. She has no family history of colon cancer. Patient History Medical History Anxiety Gallbladder disease Hypercholesteremia Hypertension Rheumatoid arthritis Seasonal affective disorder Surgical History History of breast augmentation Hx of appendectomy Status post delivery Family & Social History Social History: household members spouse Tobacco & Substance use: Tobacco type cigarettes Smoking Status Former smoker alcohol intake current alcohol intake frequency a few times a month Substance Use Type does not use Meds Home Medications and Allergies Home Medications Medication Instructions Recorded Confirmed Type astaxanthin 4 mg capsule 4 mg PO .QD 09/13/21 12/12/21 History folic acid 1 mg tablet 1 mg PO DAILY 09/13/21 12/12/21 History methotrexate sodium 2.5 mg tablet 20 mg PO QWEEK 09/13/21 12/12/21 History metoprolol tartrate 25 mg tablet 25 mg PO BID 09/13/21 12/12/21 History omeprazole 40 mg capsule,delayed 40 mg PO DAILY 09/13/21 12/12/21 History release venlafaxine 37.5 mg tablet 37.5 mg PO DAILY 09/13/21 12/12/21 History Allergies Allergy/AdvReac Type Severity Reaction Status Date / Time codeine [CODEINE] Allergy Unknown Verified 12/12/21 12:29 Sulfa (Sulfonamide Allergy Unknown Verified 12/12/21 12:29 Antibiotics) [SULFA (SULFONAMIDE ANTIBIOTICS)] Exam Vital Signs (past 8 hours): - 12/12/21 12:32 Temperature 97.8 F Pulse Rate 68 Respiratory Rate 17 Blood Pressure 124/82 Pulse Oximetry 95 Oxygen Delivery Method Room Air Oxygen Delivery Method Room Air Const General: healthy appearing Resp Effort & Inspection: normal respiratory effort Assessment & Plan Assessment and plan (1) Colon cancer screening: Status: Acute Plan Joyce is here for her colonoscopy. We reviewed the risks and benefits and she would like to proceed. Time Spent With Patient Critical Care time: I spent a total of [] minutes of critical care time on this patient's care today; this time is exclusive of procedural time.
[2021-12-12] MEDS: MIDAZOLAM 5 MG/5 ML VIAL 8 MG IV (14:10)
[2021-12-12] MEDS: fentaNYL 100 MCG/2 ML INJ 175 MCG IV (14:14)
--- NOTE | 2021-12-12 14:27 | PM.OP.COLON ---
Operative Date/Time/Diagnoses Date of procedure: 12/12/21 Time of procedure: 14:27 Pre-op diagnosis: Colon cancer screening Post-op diagnosis: same Procedure & Clinicians Study performed: Colonoscopy Same procedure as scheduled: Yes Surgeon: Jak Burk Procedure Notes Procedure in detail: Surgeon: Jak Burk MD Procedure: The patient was brought to the endoscopy suite, placed in left lateral decubitus position. The patient was connected to monitoring devices. A time-out was performed. Sedation was administered. Once the patient was adequately sedated, a digital rectal exam was performed and was normal. The scope was then inserted and advanced to the cecum where the appendiceal orifice was identified and photographed. The scope was then slowly withdrawn over greater than 6 minutes. The mucosa was thoroughly inspected. No polyps were seen. There was pandiverticulosis greatest in the sigmoid. The scope was retroflexed in the rectum. No abnormalities were noted. The scope was straightened and removed. The patient was awakened and brought to recovery. Versed: 8 mg Fentanyl: 175 mcg EBL: 0 Findings: Diverticulosis Scope withdrawal time: 10 Sedation minutes: 23 Post-procedure Recommendations: Colonoscopy in 10 years Disposition: PACU
--- NOTE | 2021-12-12 14:29 | SUR.OPER ---
Vital signs stable throughout procedure, vitals deleted before printed.
[2021-12-12 14:30] VITALS: BP 114/61; PULSE 61; RESP 16; TEMP 36.2; O2SAT 97
[2021-12-12 14:36] VITALS: BP 101/62; PULSE 71; RESP 16; O2SAT 98
[2021-12-12 14:42] VITALS: BP 113/71; PULSE 67; RESP 15; TEMP 35.9; O2SAT 98
[2021-12-12] MEDS: LACTATED RINGERS 1,000 ML 150 ML IV (14:44)
== END 2021-12-12 14:52 | disposition home or self-care (01) ==
PROVIDERS: PCP Family Medicine; Referring Provider Surgery; Visit Provider Surgery
PROC: 0DJD8ZZ Inspection of Lower Intestinal Tract, Via Natural or Artificial Opening Endoscopic (ICD-10-PCS; CPT 45378; principal; 2021-12-12 13:45)
DX: Z12.11 Encounter for screening for malignant neoplasm of colon (principal); K57.30 Diverticulosis of large intestine without perforation or abscess without bleeding
CPT/HCPCS: 45378; 99152; 99153; J2250; J3010

== ENCOUNTER → 2022-02-26 07:59 | Outpatient (CLI) | payer OTHER, SELFPAY ==
--- NOTE | 2022-02-26 08:00 | DI.MG.S_ITS ---
BILATERAL DIGITAL SCREENING MAMMOGRAM 3D/2D WITH CAD WITH AUGMENTATION: 02/26/2022 CLINICAL: Routine screening. Family history of breast cancer. Comparison is made to exams dated: 12/08/2020 mammogram, 10/27/2018 mammogram, and 11/16/2017 mammogram - [facility]. Both breasts are almost entirely fatty (category a/<25% glandular tissue). Current study was also evaluated with a Computer Aided Detection (CAD) system. Bilateral breast implants are stable. No significant masses, calcifications, or other findings are seen in either breast. There has been no significant interval change. IMPRESSION: NEGATIVE There is no mammographic evidence of malignancy. A 1 year screening mammogram is recommended. Based on the Tyrer Cuzick model (a risk assessment model) the patient's lifetime risk is 8.3% and her 10 year risk is 3.4%. According to the ACR, ACS, and NCCN guidelines, an annual breast MRI exam along with mammogram is recommended if the patient's lifetime risk is 20% or greater. This exam was interpreted at Station ID: [id number]. NOTE: For mammograms, a report in lay terms will be sent to the patient. Approximately 15% of breast malignancies will not be visualized mammographically. In the management of a palpable breast mass, a negative mammogram must not discourage biopsy of a clinically suspicious lesion. Electronically Signed By: Belkys dior/johnny:02/27/2022 12:35:44 letter sent: Normal Exam ACR BI-RADS Category 1: Negative 3341F
== END ==
PROVIDERS: PCP Family Medicine; Referring Provider Family Medicine; Visit Provider Family Medicine
DX: Z12.31 Encounter for screening mammogram for malignant neoplasm of breast (principal); Z80.3 Family history of malignant neoplasm of breast
CPT/HCPCS: 77063; 77067

== ENCOUNTER → 2022-06-09 07:19 | Outpatient (CLI) | payer OTHER, SELFPAY ==
[2022-06-09 08:27] LABS: Add Manual Diff / Slide Review NO; Basophils Absolute Auto 0 /uL (0-100); Basophils Percent Auto 0.6 % (0-2); Eosinophils Absolute Auto 200 /uL (0-450); Eosinophils Percent Auto 2.8 % (2-4); Hematocrit 40.5 % (36-46); Hemoglobin 13.4 g/dL (12.0-16.0); Lymphocytes Absolute Auto 2200 /uL (1100-4500); Lymphocytes Percent Auto 29.8 % (25-40); Mean Corpuscular HGB Conc 33.1 % (30-36); Mean Corpuscular Hemoglobin 29.7 PG (26-34); Mean Corpuscular Volume 89.8 fL (80-100); Monocytes Absolute Auto 400 /uL (0-900); Monocytes Percent Auto 5.7 % (3-14); Neutrophils Absolute Auto 4400 /uL (1500-7000); Neutrophils Percent Auto 61.1 % (50-75); Platelet Count 394 X10^3/uL (150-400); Red Blood Cell Count 4.51 X10^6/uL (4.0-5.2); Red Cell Distribution Width 14.3 % (11.6-14.8); White Blood Cell Count 7.3 X10^3/uL (4.5-11.0)
[2022-06-09 08:46] LABS: Erythrocyte Sedimentation Rate 3 MM/HR (0-20)
[2022-06-09 09:02] LABS: Alanine Aminotransferase 50 IU/L (<35); Albumin 4.2 g/dL (3.5-5.0); Albumin Globulin Ratio 1.6 (1.0-2.8); Alkaline Phosphatase 99 U/L (38-126); Aspartate Aminotransferase 28 IU/L (14-36); BUN Creatinine Ratio 28.1 (6-22); Bilirubin Total 1.1 mg/dL (0.2-1.3); Blood Urea Nitrogen 16 mg/dL (7-17); C-Reactive Protein Quant 0.8 mg/dL (<1.0); Calcium 9.2 mg/dL (8.4-10.2); Carbon Dioxide 27 mmol/L (22-32); Chloride 101 mmol/L (98-107); Estimated Glomerular Filt Rate > 60 mL/min (>60); Globulin 2.6 g/dL (1.7-4.1); Glucose 88 mg/dL (80-110); HEMOLYSIS < 15 (0-50); Potassium 4.7 mmol/L (3.4-5.1); Sodium 137 mmol/L (137-145); Total Protein 6.8 g/dL (6.3-8.2)
== END ==
PROVIDERS: PCP Family Medicine; Referring Provider Physician Assistant Medical; Visit Provider Physician Assistant Medical
DX: M05.79 Rheumatoid arthritis with rheumatoid factor of multiple sites without organ or systems involvement (principal)
CPT/HCPCS: 36415; 80053; 85025; 85651; 86140

== ENCOUNTER → 2022-07-25 07:58 | Outpatient (CLI) | payer OTHER, SELFPAY ==
[2022-07-25 09:32] LABS: Cholesterol 184 mg/dL (140-199); HDL Cholesterol 46 mg/dL (40-60); LDL Cholesterol Calculated 116 mg/dL (<100); Triglycerides 110 mg/dL (35-150)
== END ==
PROVIDERS: PCP Family Medicine; Referring Provider Family Medicine; Visit Provider Family Medicine
DX: E78.5 Hyperlipidemia, unspecified (principal)
CPT/HCPCS: 36415; 80061

== ENCOUNTER → 2022-09-01 11:55 | Outpatient (CLI) | payer OTHER, SELFPAY ==
[2022-09-01 12:55] LABS: Add Manual Diff / Slide Review NO; Basophils Absolute Auto 0 /uL (0-100); Basophils Percent Auto 0.6 % (0-2); Eosinophils Absolute Auto 200 /uL (0-450); Eosinophils Percent Auto 2.8 % (2-4); Hematocrit 37.6 % (36-46); Hemoglobin 12.4 g/dL (12.0-16.0); Lymphocytes Absolute Auto 2300 /uL (1100-4500); Lymphocytes Percent Auto 32.3 % (25-40); Mean Corpuscular Hemoglobin 29.4 PG (26-34); Monocytes Absolute Auto 400 /uL (0-900); Monocytes Percent Auto 5.9 % (3-14); Neutrophils Absolute Auto 4200 /uL (1500-7000); Neutrophils Percent Auto 58.4 % (50-75); Platelet Count 393 X10^3/uL (150-400); Red Blood Cell Count 4.23 X10^6/uL (4.0-5.2); Red Cell Distribution Width 13.7 % (11.6-14.8); White Blood Cell Count 7.2 X10^3/uL (4.5-11.0)
[2022-09-01 13:10] LABS: Alanine Aminotransferase 42 IU/L (<35); Albumin 4.2 g/dL (3.5-5.0); Albumin Globulin Ratio 1.6 (1.0-2.8); Alkaline Phosphatase 102 U/L (38-126); Aspartate Aminotransferase 25 IU/L (14-36); BUN Creatinine Ratio 27.6 (6-22); Bilirubin Total 0.9 mg/dL (0.2-1.3); Blood Urea Nitrogen 16 mg/dL (7-17); C-Reactive Protein Quant < 0.5 mg/dL (<1.0); Calcium 8.6 mg/dL (8.4-10.2); Carbon Dioxide 27 mmol/L (22-32); Chloride 105 mmol/L (98-107); Estimated Glomerular Filt Rate > 60 mL/min (>60); Globulin 2.6 g/dL (1.7-4.1); Glucose 86 mg/dL (80-110); HEMOLYSIS < 15 (0-50); Potassium 3.9 mmol/L (3.4-5.1); Sodium 139 mmol/L (137-145); Total Protein 6.8 g/dL (6.3-8.2)
[2022-09-01 13:13] LABS: Erythrocyte Sedimentation Rate 4 MM/HR (0-20)
[2022-09-01 13:24] LABS: Free T3, Triiodothyronine Free 4.02 pg/mL (2.77-5.27); Free T4, Direct Thyroxine 0.88 ng/dL (0.78-2.19)
[2022-09-01 13:38] LABS: Thyroid Stimulating Hormone 0.904 uIU/mL (0.47-4.68)
== END ==
PROVIDERS: PCP Family Medicine; Referring Provider Internal Medicine Rheumatology; Visit Provider Internal Medicine Rheumatology
DX: M05.79 Rheumatoid arthritis with rheumatoid factor of multiple sites without organ or systems involvement (principal); R00.2 Palpitations
CPT/HCPCS: 36415; 80053; 84439; 84443; 84481; 85025; 85651; 86140

== ENCOUNTER → 2022-09-04 07:56 | Outpatient (CLI) | payer OTHER, SELFPAY ==
--- NOTE | 2022-09-04 | DI.ECHO.S_ITS ---
[place] [facility]---------+ [facility] +---------+ : : [address] : : : : [id number] : : : : Phone: [phone]+ Echocardiogram Report + + :Name: PA CONSTANTINO Study Date: 09/04/2022 Height: 66 in : :[facility] ReadingLocation: Weight: 189 lb : : Gender: Female BSA: 2.0 m2 : :: 1960 Age: 61 yrs BP: 134/88 mmHg: :Reason For Study: PALPITATIONS HR: 60 : :Ordering Physician: JANEEN, : :DENY Performed By: SUSHMA ROBERTS : :Referring: DENY VERNON : + + Interpretation Summary The ejection fraction is estimated to be 60-65%. Diastolic parameters suggest probable normal left ventricular diastolic function and normal filling pressures. The right ventricle is normal in size and function. Pulmonary artery pressures cannot be estimated because of the lack of a measurable TR jet velocity. Both atria are normal in size. No significant valvular abnormality. Procedure: A two-dimensional transthoracic echocardiogram with color flow and Doppler was performed. The study quality was technically adequate. Comparison is made with the echocardiogram of 11/30/2017. The patient was in normal sinus rhythm during the exam. Left Ventricle: The left ventricle is normal in size and wall thickness. Left ventricular systolic function is normal. The ejection fraction is estimated to be 60-65%. There are no obvious focal wall motion abnormalities noted but poor endocardial definition reduces the sensitivity for the detection of such. Diastolic parameters suggest probable normal left ventricular diastolic function and normal filling pressures. Right Ventricle: The right ventricle is normal in size and function. Atria: Both atria are normal in size. There is no Doppler evidence for an interatrial shunt. Mitral Valve: The mitral valve is normal in structure and function. There is trace mitral regurgitation. Aortic Valve: The aortic valve is trileaflet. The aortic valve opens well. There is no aortic valve stenosis. No aortic regurgitation is present. Tricuspid Valve: The tricuspid valve is normal in structure and function. There is trace tricuspid regurgitation. Pulmonary artery pressures cannot be estimated because of the lack of a measurable TR jet velocity. Pulmonic Valve: The pulmonic valve leaflets are thin and pliable; valve motion is normal. There is mild pulmonic regurgitation. Great Vessels: The aortic root is normal size. The ascending aorta is normal in size. The IVC is of normal diameter and collapses greater than 50% with a sniff. This suggests a low right atrial pressure of 3 mm Hg. Pericardium/ Pleura There is no pericardial effusion. There is no pleural effusion. MMode/2D Measurements & Calculations LVIDd: 4.2 cm LVOT diam: 2.0 cm LVIDs: 2.7 cm Ao root diam: 3.0 cm FS: 35.7 % asc Aorta Diam: 3.4 cm IVSd: 1.0 cm LVPWd: 1.0 cm LV roberts. diameter/BSA (cm/m^2): 2.2 LV sys. diameter/BSA (cm/m^2): 1.4 LA A2 area: 20.1 cm2 RA long axis: 5.0 cm LA A4 area: 21.4 cm2 LA length (vol): 5.9 cm LA vol: 62.1 ml LA vol index: 31.8 ml/m2 RVD1 (basal): 3.7 cm LVLs ap4: 6.4 cm LVLd ap2: 7.9 cm TAPSE_phl: 2.2 cm LVLs ap2: 6.7 cm Doppler Measurements & Calculations Ao V2 max: 138.0 cm/sec LVOT Max Trevor: 106.0 cm/sec Ao V2 mean: 94.9 cm/sec LV V1 max P.5 mmHg Ao max P.0 mmHg LV V1 VTI: 26.5 cm Ao mean P.0 mmHg JARVIS(I,D): 2.7 cm2 Ao V2 VTI: 31.0 cm JARVIS(V,D): 2.4 cm2 sev ratio: 0.85 JARVIS indexed to BSA (cm^2/m^2): 1.4 MV E max trevor: 85.7 cm/sec PA V2 max: 72.2 cm/sec MV A max trevor: 61.3 cm/sec PA V2 mean: 57.3 cm/sec MV E/A: 1.4 PA mean P.0 mmHg Med Peak E' Trevor: 6.3 cm/sec PA pr(Accel): 30.0 mmHg E/E' med: 13.6 Lat Peak E' Trevor: 10.4 cm/sec E/E' lat: 8.2 E/e' average: 10.9 MV dec time: 0.22 sec SV(LVOT): 83.3 ml AV VR_phl: 0.77 JARVIS(VTI)/BSA_phl: 1.4 MV P1/2t-pr_phl: 65.0 msec Reading Physician:PM
== END ==
PROVIDERS: PCP Family Medicine; Referring Provider Family Medicine; Visit Provider Family Medicine
DX: R00.2 Palpitations (principal)
CPT/HCPCS: 93306

== ENCOUNTER → 2022-09-08 09:42 | Outpatient (CLI) | payer OTHER, SELFPAY | PROVIDERS: PCP Family Medicine; Referring Provider Family Medicine; Visit Provider Family Medicine | DX: R00.2 Palpitations (principal) | CPT/HCPCS: 93246 ==

== ENCOUNTER → 2023-03-17 12:43 | Outpatient (CLI) | payer OTHER, SELFPAY ==
--- NOTE | 2023-03-17 | DI.MG.S_ITS ---
BILATERAL DIGITAL SCREENING MAMMOGRAM 3D/2D WITH CAD WITH AUGMENTATION: 03/17/2023 CLINICAL: Routine screening. Family history of breast cancer. Comparison is made to exams dated: 02/26/2022 mammogram, 12/08/2020 mammogram, 06/14/2020 mammogram, and 11/21/2019 mammogram - [facility]. Both breasts are almost entirely fatty (category a/<25% glandular tissue). Current study was also evaluated with a Computer Aided Detection (CAD) system. Bilateral breast implants are stable. No significant masses, calcifications, or other findings are seen in either breast. There has been no significant interval change. IMPRESSION: NEGATIVE There is no mammographic evidence of malignancy. A 1 year screening mammogram is recommended. Based on the Tyrer Cuzick model (a risk assessment model) the patient's lifetime risk is 8.1% and her 10 year risk is 3.4%. According to the ACR, ACS, and NCCN guidelines, an annual breast MRI exam along with mammogram is recommended if the patient's lifetime risk is 20% or greater. This exam was interpreted at Station ID: [id number]. NOTE: For mammograms, a report in lay terms will be sent to the patient. Approximately 15% of breast malignancies will not be visualized mammographically. In the management of a palpable breast mass, a negative mammogram must not discourage biopsy of a clinically suspicious lesion. Electronically Signed By: Michaela beatty/johnny:03/17/2023 15:08:08 letter sent: Normal Exam ACR BI-RADS Category 1: Negative 3341F
== END ==
PROVIDERS: PCP Family Medicine; Referring Provider Family Medicine; Visit Provider Family Medicine
DX: Z12.31 Encounter for screening mammogram for malignant neoplasm of breast (principal); Z80.3 Family history of malignant neoplasm of breast
CPT/HCPCS: 77063; 77067

== ENCOUNTER → 2023-08-31 09:37 | Outpatient (CLI) | payer OTHER, SELFPAY ==
--- NOTE | 2023-08-31 09:38 | DI.RAD.S_ITS ---
PROCEDURE: XR DEXA AXIAL SKELETON INDICATIONS: SCREENING COMPARISON: [facility], , DEXA AXIAL SKELETON, 06/07/2010, 12:33. FINDINGS: Lumbar Spine: Bone mineral density 1.098 g/cm2, T score 2.0. Left Hip: Bone mineral density 0.892 g/cm2, T score -0.4. Left Femoral Neck: Bone mineral density 0.722 g/cm2, T score -1.1. Fracture Risk Calculation (when applicable): 10-year fracture risk of a major osteoporotic fracture 9.6% (16% if history of prior fracture) and of a hip fracture 0.7% (1.2% if history of prior fracture). (T score greater or equal to -1.0 to: NORMAL) (T score from -1.1 to -2.4: OSTEOPENIA) (T score less than or equal to -2.5: OSTEOPOROSIS) IMPRESSION: Osteopenia. Follow-up guidelines as follows: Osteoporosis: Consider a repeat DEXA and Vertebral Fracture Assessment (VFA) exam in 2 years or sooner if medically necessary, to reassess this patient's status. Osteopenia: Consider a repeat DEXA in 2-3 years to reassess this patient's status, or if there is a new clinical indication. Normal: Consider a repeat DEXA in 5 years or sooner, or if there is a new clinical indication. Dictated by: Pilo Hightower M.D. on 08/31/2023 at 10:16 Approved by: Pilo Hightower M.D. on 08/31/2023 at 10:19
== END ==
PROVIDERS: PCP Family Medicine; Referring Provider Family Medicine; Visit Provider Family Medicine
DX: M85.89 Other specified disorders of bone density and structure, multiple sites (principal)
CPT/HCPCS: 77080

== ENCOUNTER → 2024-03-18 07:54 | Outpatient (CLI) | payer OTHER, SELFPAY ==
--- NOTE | 2024-03-18 | DI.MG.S_ITS ---
BILATERAL DIGITAL SCREENING MAMMOGRAM 3D/2D WITH CAD WITH AUGMENTATION: 03/18/2024 CLINICAL: Routine screening. Family history of breast cancer. Comparison is made to exams dated: 03/17/2023 mammogram, 02/26/2022 mammogram, and 12/08/2020 mammogram - [facility]. The breasts are almost entirely fatty (category a/<25% glandular tissue). Current study was also evaluated with a Computer Aided Detection (CAD) system. Right breast implant is intact and stable. The left implant has ruptured since the prior exam. No significant masses, calcifications, or other findings are seen in either breast. IMPRESSION: BENIGN A clinical correlation is recommended for further evaluation of the left implant which appears ruptured. There is no mammographic evidence of malignancy. A 1 year screening mammogram is recommended. Based on the Tyrer Cuzick model (a risk assessment model) the patient's lifetime risk is 7.9% and her 10 year risk is 3.4%. According to the ACR, ACS, and NCCN guidelines, an annual breast MRI exam along with mammogram is recommended if the patient's lifetime risk is 20% or greater. This exam was interpreted at Station ID: [id number]. NOTE: For mammograms, a report in lay terms will be sent to the patient. Approximately 15% of breast malignancies will not be visualized mammographically. In the management of a palpable breast mass, a negative mammogram must not discourage biopsy of a clinically suspicious lesion. Electronically Signed By: Belkys dior/:03/18/2024 11:20:51 letter sent: Normal Exam ACR BI-RADS Category 2: Benign
== END ==
PROVIDERS: PCP Family Medicine; Referring Provider Family Medicine; Visit Provider Family Medicine
DX: Z12.31 Encounter for screening mammogram for malignant neoplasm of breast (principal); Z80.3 Family history of malignant neoplasm of breast; R92.313 Mammographic fatty tissue density, bilateral breasts
CPT/HCPCS: 77063; 77067

== ENCOUNTER → 2024-04-26 07:12 | Outpatient (CLI) | payer OTHER, SELFPAY ==
--- NOTE | 2024-04-26 07:14 | EKG_ITS ---
[address] [address] Test Date: 2024-04-26 Pat Name: Joyce Marrero Department: [facility] Room: Gender: Female Buttoner: LILY : 1960 Requested By: Order Number: [id number] Reading MD: Jenaro York MD Measurements Intervals [place] Rate: 62 P: 57 OK: 164 QRS: 16 QRSD: 80 T: 36 QT: 412 QTc: 418 Interpretive Statements Normal sinus rhythm Possible Left atrial enlargement Electronically Signed On 04-26-2024 7:48:39 PST by Jenaro York MD
== END ==
LOC: LAB 07:13 → RESP 07:14
PROVIDERS: PCP Family Medicine; Referring Provider Plastic Surgery; Visit Provider Plastic Surgery
DX: Z01.818 Encounter for other preprocedural examination (principal)
CPT/HCPCS: 93005; 93010

== ENCOUNTER → 2024-05-24 06:40 | Outpatient (CLI) | payer OTHER, SELFPAY ==
--- NOTE | 2024-05-24 06:41 | DI.ECHO.S_ITS ---
[facility] : : [address] : : [place] : : [id number] : : Phone: [phone] Echocardiogram Report + + :Name: PA CONSTANTINO Study Date: 05/24/2024 Height: 66 in : :Hospital ReadingLocation: Weight: 190 lb : : Gender: Female BSA: 2.0 m2 : :: 1960 Age: 63 yrs BP: 147/95 mmHg: :Reason For Study: BILATERAL ATRIAL ENLARGEMENT : :Ordering Physician: JANEEN, : :DENY Performed By: Florence Burns : :Referring: DENY VERNON : + + Interpretation Summary The ejection fraction is estimated to be 65-70%. Diastolic parameters suggest probable normal left ventricular diastolic function and normal filling pressures. The right ventricle is normal in size and function. No valvular abnormalities. Pulmonary artery pressures cannot be estimated because of the lack of a measurable TR jet velocity but the IVC suggests a CVP of around 3 mmHg. No change compared to prior study 09/04/2022. Procedure: A two-dimensional transthoracic echocardiogram with color flow and Doppler was performed. The study quality was technically adequate. Comparison is made with the echocardiogram of 09/04/2022. The patient was in sinus rhythm with heart rates between 60-75 bpm during the exam. Left Ventricle: The left ventricle is normal in size and wall thickness. The ejection fraction is estimated to be 65-70%. Diastolic parameters suggest probable normal left ventricular diastolic function and normal filling pressures. Right Ventricle: The right ventricle is normal in size and function. Atria: The left atrial size is normal. Right atrial size is normal. There is no Doppler evidence for an interatrial shunt. Mitral Valve: The mitral valve leaflets appear to open well. There is trace mitral regurgitation. Aortic Valve: The aortic valve is trileaflet. The aortic valve opens well. There is no aortic valve stenosis. No aortic regurgitation is present. Tricuspid Valve: The tricuspid valve leaflets are thin and pliable. There is trace tricuspid regurgitation. Pulmonary artery pressures cannot be estimated because of the lack of a measurable TR jet velocity but the IVC suggests a CVP of around 3 mmHg. Pulmonic Valve: The pulmonic valve is not well visualized. There is mild pulmonic regurgitation. Great Vessels: The aortic root is normal size. The ascending aorta could not be visualized. The IVC is of normal diameter and collapses greater than 50% with a sniff. This suggests a low right atrial pressure of 3 mm Hg. Pericardium/ Pleura There is no pericardial effusion. There is no pleural effusion. MMode/2D Measurements & Calculations LVIDd: 4.6 cm LVOT diam: 2.2 cm LVIDs: 2.8 cm Ao root diam: 3.2 cm FS: 38.1 % asc Aorta Diam: 3.2 cm IVSd: 1.0 cm Ao Arch Diam (Prox Trans): 3.2 cm LVPWd: 0.68 cm LV roberts. diameter/BSA (cm/m^2): 2.3 LV sys. diameter/BSA (cm/m^2): 1.4 LA A2 area: 21.9 cm2 RA long axis: 4.5 cm LA A4 area: 18.5 cm2 RA area: 15.1 cm2 LA length (vol): 5.7 cm RA vol: 43.0 ml LA vol: 60.4 ml RA : 22.0 ml/m2 LA vol index: 30.9 ml/m2 IVC diam: 2.0 cm RVD1 (basal): 3.4 cm TAPSE: 1.7 cm Doppler Measurements & Calculations Ao V2 max: 134.7 cm/sec LVOT Max Trevor: 88.5 cm/sec Ao V2 mean: 93.1 cm/sec LV V1 max P.1 mmHg Ao max P.3 mmHg LV V1 VTI: 22.7 cm Ao mean P.9 mmHg JARVIS(I,D): 2.7 cm2 Ao V2 VTI: 31.2 cm JARVIS(V,D): 2.5 cm2 sev ratio: 0.73 JARVIS indexed to BSA (cm^2/m^2): 1.4 MV E max trevor: 71.4 cm/sec PA V2 max: 72.6 cm/sec MV A max trevor: 55.4 cm/sec PA V2 mean: 51.0 cm/sec MV E/A: 1.3 PA mean P.2 mmHg Med Peak E' Trevor: 6.7 cm/sec PA pr(Accel): 8.8 mmHg E/E' med: 10.6 Lat Peak E' Trevor: 9.4 cm/sec E/E' lat: 7.6 E/e' average: 9.1 MV dec time: 0.22 sec SV(LVOT): 84.7 ml Reading Physician:04:49 PM
== END ==
LOC: ECHO 06:41
PROVIDERS: PCP Family Medicine; Referring Provider Family Medicine; Visit Provider Family Medicine
DX: I37.1 Nonrheumatic pulmonary valve insufficiency (principal); I51.7 Cardiomegaly
CPT/HCPCS: 93306

== ENCOUNTER → 2024-07-18 17:16 | Outpatient (CLI) | payer OTHER, SELFPAY ==
--- NOTE | 2024-07-18 17:22 | DI.RAD.S_ITS ---
PROCEDURE: XR CHEST 2V INDICATIONS: FEVER; UNKNOWN CAUSE TECHNIQUE: 2 views of the chest were acquired. COMPARISON: [facility], CR, XR CHEST 1V, 02/18/2019, 7:46. FINDINGS: Heart, mediastinum and pulmonary vascular: Heart is normal in size and configuration. Mediastinum is unremarkable. Pulmonary vascular is normal. Lungs: Small vague right middle lobe infiltrate has developed since the 02/18/2019 comparison study Pleural spaces: Normal-no effusions or pneumothorax. Bones and soft tissues: Normal IMPRESSION: Small vague right middle lobe pneumonia Dictated by: Jenaro Klein M.D. on 07/19/2024 at 9:26 Approved by: Jenaro Klein M.D. on 07/19/2024 at 9:27
[2024-07-18 18:17] LABS: Add Manual Diff / Slide Review NO; Basophils Absolute Auto 100 /uL (0-100); Basophils Percent Auto 1.2 % (0-2); Eosinophils Absolute Auto 0 /uL (0-450); Eosinophils Percent Auto 0.8 % (2-4); Hematocrit 46.3 % (36-46); Hemoglobin 15.4 g/dL (12.0-16.0); Lymphocytes Absolute Auto 1700 /uL (1100-4500); Lymphocytes Percent Auto 28.8 % (25-40); Mean Corpuscular HGB Conc 33.3 % (30-36); Mean Corpuscular Hemoglobin 29.2 PG (26-34); Mean Corpuscular Volume 87.5 fL (80-100); Monocytes Absolute Auto 300 /uL (0-900); Monocytes Percent Auto 5.8 % (3-14); Neutrophils Absolute Auto 3700 /uL (1500-7000); Neutrophils Percent Auto 63.4 % (50-75); Platelet Count 335 X10^3/uL (150-400); Red Blood Cell Count 5.29 X10^6/uL (4.0-5.2); Red Cell Distribution Width 13.7 % (11.6-14.8); White Blood Cell Count 5.8 X10^3/uL (4.5-11.0)
[2024-07-18 18:30] LABS: Alanine Aminotransferase 102 IU/L (<35); Albumin 4.5 g/dL (3.5-5.0); Albumin Globulin Ratio 1.7 (1.0-2.8); Alkaline Phosphatase 154 U/L (38-126); Aspartate Aminotransferase 86 IU/L (14-36); BUN Creatinine Ratio 18.8 (6-22); Blood Urea Nitrogen 18 mg/dL (7-17); C-Reactive Protein Quant 6.5 mg/dL (<1.0); Calcium 9.8 mg/dL (8.4-10.2); Carbon Dioxide 24 mmol/L (22-32); Chloride 99 mmol/L (98-107); Estimated Glomerular Filt Rate > 60 mL/min (>60); Globulin 2.7 g/dL (1.7-4.1); Glucose 103 mg/dL (80-110); HEMOLYSIS < 15 (0-50); Potassium 3.8 mmol/L (3.4-5.1); Sodium 134 mmol/L (137-145); Total Protein 7.2 g/dL (6.3-8.2)
== END ==
LOC: RAD 17:19
PROVIDERS: PCP Family Medicine; Referring Provider Family Medicine; Visit Provider Family Medicine
DX: R05.1 Acute cough (principal); J18.9 Pneumonia, unspecified organism; R50.9 Fever, unspecified; Z13.0 Encounter for screening for diseases of the blood and blood-forming organs and certain disorders involving the immune mechanism
CPT/HCPCS: 36415; 71046; 80053; 85025; 86140

== ENCOUNTER → 2024-07-21 07:23 | Outpatient (CLI) | payer OTHER, SELFPAY ==
--- NOTE | 2024-07-21 07:25 | DI.CT.S_ITS ---
PROCEDURE: CT CHEST ABD PEL W CON INDICATIONS: Elevated liver function TECHNIQUE: After the administration of intravenous contrast, 5 mm thick sections acquired from the lung apices to the symphysis. 5 mm coronal and sagittal reformats were performed, with additional 7 mm MIP reformats through the lungs. For radiation dose reduction, the following was used: automated exposure control, adjustment of mA and/or kV according to patient size. COMPARISON: [facility], CR, XR CHEST 2V, 07/18/2024, 17:26. FINDINGS: Image quality: Excellent. CHEST: Lower Neck: No enlarged lymph nodes. Thyroid: No thyroid nodules which require sonographic follow up, per consensus guidelines. Axillae: No enlarged lymph nodes. Chest Wall: Bilateral breast implants without evidence of implant rupture. Lungs and Pleura: No pneumothorax or pleural effusions. No left-sided consolidation or suspicious nodules. The prior plain films raise concern for anterior lung mass or pneumonia right middle lobe area. The current CT scanning shows an ovoid mass lesion that is mildly spiculated measuring up to 1.4 x 2.4 cm with a small amount of central necrosis and an adjacent 9 mm satellite nodule abutting the anterior pleural surface, within the right middle lobe. Heart: Heart size is normal. No pericardial effusion. Thoracic Vessels: The aorta and pulmonary arteries demonstrate normal size. Mediastinum and Becca: There is evidence of metastatic adenopathy involving the right hilum with confluent enlarged lymph nodes measuring up to 3 cm and also abnormal smaller but pathologic lymph nodes at the anterior mediastinum and right precarinal space seen on series 4, image 35. Esophagus: No wall thickening. No hiatal hernia. ABDOMEN: Liver: No solid mass. Gallbladder: Prior cholecystectomy. Biliary ducts: No biliary dilation. Pancreas: No ductal dilation. Spleen: Size is within normal limits. Adrenal Glands: No adrenal nodules. Kidneys and Ureters: No hydronephrosis. No solid mass. No complex renal cystic lesion which requires follow up. Stomach and Bowel: Normal colonic caliber, without significant wall thickening. Peritoneum: No abnormal intraperitoneal fluid. No free air. Ventral Wall: No significant ventral hernia. Abdominal Nodes: No retroperitoneal or mesenteric adenopathy by size criteria. Vessels: Aorta and inferior vena cava are normal in size. PELVIS: Pelvic Organs: Unremarkable. Bladder: No bladder wall thickening, accounting for underdistention. Pelvic Nodes: No enlarged lymph nodes. Miscellaneous: No inguinal hernias are seen. Left colonic diverticulosis. Bones: No aggressive osseous abnormality. IMPRESSION: Malignant right middle lobe lung mass with a small degree of internal cavitary change, an adjacent satellite lesion within the right middle lobe, and malignant right hilar and mediastinal adenopathy. Dictated by: Chemo Uriarte M.D. on 07/21/2024 at 9:52 Approved by: Chemo Uriarte M.D. on 07/21/2024 at 10:04
== END ==
PROVIDERS: PCP Family Medicine; Referring Provider Family Medicine; Visit Provider Family Medicine
DX: C34.2 Malignant neoplasm of middle lobe, bronchus or lung (principal); C77.1 Secondary and unspecified malignant neoplasm of intrathoracic lymph nodes; R79.89 Other specified abnormal findings of blood chemistry; R50.9 Fever, unspecified; Z90.49 Acquired absence of other specified parts of digestive tract
CPT/HCPCS: 71260; 74177; Q9967

== ENCOUNTER → 2024-08-16 09:09 | Outpatient (CLI) | payer OTHER, SELFPAY ==
--- NOTE | 2024-08-16 | DI.CT.S_ITS ---
PROCEDURE: CT CHEST W CON INDICATIONS: F/U MASS TECHNIQUE: After the administration of intravenous contrast, 5 mm thick sections acquired from the pulmonary apices to the posterior costophrenic angles. 1 mm axial lung, 5 mm thick coronal and sagittal reformats and 7 mm axial MIP were acquired. For radiation dose reduction, the following was used: automated exposure control, adjustment of mA and/or kV according to patient size. COMPARISON: [facility], CT, CT CHEST ABD PEL W CON, 07/21/2024, 8:35. FINDINGS: Image quality: Diagnostic. Lower Neck: No enlarged lymph nodes. Thyroid: No thyroid nodules which require sonographic follow up, per consensus guidelines. Axillae: No enlarged lymph nodes. Chest Wall: Bilateral mammoplasties. Bones: Unremarkable. Lungs and Pleura: No pneumothorax or pleural effusions. Persistent ovoid spiculated mass present in the right middle lobe, potentially slightly increased in size, definitely not decreased in size, with decrease in the amount of central cavitation. On previous image 177 of series 2 it measured approximately 2.4 x 1.1 cm. On current image 176 of series 3 it measures approximately 2.5 x 1.5 cm. Right middle lobe bronchi course directly to the lesion. Also noted is a subjacent subpleural pulmonary nodule in the right middle lobe. This nodule has decreased in size, previously 0.8 cm, and now 0.6 cm. Heart: Heart size is normal. No pericardial effusion. Thoracic Vessels: The aorta and pulmonary arteries demonstrate normal size. Mediastinum and Becca: Definite interval decrease in right hilar adenopathy. For instance, a right perihilar lymph node on previous image 42 of series 2 measured 2.3 x 1.9 cm. It currently measures 1.6 x 1.2 cm on current image 47 of series 2. Esophagus: No wall thickening. No hiatal hernia. Upper Abdomen: Visualized upper abdomen solid organs and bowel loops appear normal. IMPRESSION: 1. At the larger of the 2 right middle lobe lung lesions no longer has central cavity and may be minimally increased in size. However, the subjacent subpleural pulmonary nodule and the associated right hilar adenopathy have decreased in size. It is possible that this process is an infectious/inflammatory process. Malignancy is not excluded. Comment: Recommend follow-up CT in 2 months to document interval change. If findings are still suspicious for malignancy, bronchoscopy might be helpful at that time, as there are bronchi coursing to the lesion. Dictated by: Vineet Hartman M.D. on 08/16/2024 at 14:31 Approved by: Vineet Hartman M.D. on 08/16/2024 at 14:43
== END ==
LOC: CT 09:09
PROVIDERS: PCP Family Medicine; Referring Provider Family Medicine; Visit Provider Family Medicine
DX: J98.4 Other disorders of lung (principal); B38.0 Acute pulmonary coccidioidomycosis; R91.1 Solitary pulmonary nodule; R59.0 Localized enlarged lymph nodes
CPT/HCPCS: 71260; Q9967

== ENCOUNTER → 2024-09-27 10:12 | Outpatient (CLI) | payer OTHER, SELFPAY ==
--- NOTE | 2024-09-27 10:12 | DI.CT.S_ITS ---
PROCEDURE: CT CHEST WO CON INDICATIONS: mass of middle lob right lung TECHNIQUE: Noncontrast 5 mm thick sections acquired from the pulmonary apices to the posterior costophrenic angles. 1 mm lung window, 5 mm thick coronal and sagittal and 7 mm axial MIP reformats were then acquired. For radiation dose reduction, the following was used: automated exposure control, adjustment of mA and/or kV according to patient size. COMPARISON: [facility], CT, CT CHEST W CON, 08/16/2024, 9:18. FINDINGS: Image quality: Diagnostic. Lower Neck: No enlarged lymph nodes . Thyroid: No thyroid nodules which require sonographic follow up, per consensus guidelines. Axillae: No enlarged lymph nodes. Chest Wall: Unremarkable. Bilateral breast implants are again noted. Bones: Visualized osseous structures appear intact without acute fracture or focal destructive lesion. No acute compression fractures of the imaged spine. Lungs and Pleura: No pneumothorax or pleural effusions. Redemonstration of persistent ovoid right middle lobe pulmonary mass with irregular margins. Accounting for differences in imaging technique and when measured at a similar level, this mass has decreased in size and prominence compared to the prior study. Measured on the coronal plane, this mass measures 1.3 x 1.8 cm (38/series 4) versus approximately 1.5 x 2.1 cm (38/series 5 on August 16, 2024 exam). On the axial plane, this mass measures approximately 1.2 x 2.3 cm (173/series 3) versus 1.4 x 2.6 cm (175/series 3 on August 16, 2024 exam). Minimal central cavitation as before. No surrounding ground-glass opacities. Redemonstration of mild surrounding nodularity. No new nodules identified. Stable pleural-based nodule in the anterior right middle lobe measuring 6 mm (182/series 3). Otherwise, no new suspicious or enlarging pulmonary nodules elsewhere. Heart: Heart size is normal. No pericardial effusion. Thoracic Vessels: The aorta and pulmonary arteries demonstrate normal size. Mediastinum and Becca: No enlarged lymph nodes. Esophagus: No wall thickening. No hiatal hernia. Upper Abdomen: Visualized upper abdomen solid organs and bowel loops appear normal. IMPRESSION: Redemonstration of ovoid right middle lobe mass with irregular margins which has demonstrated interval decrease in size and conspicuity. Stable appearance of minimal surrounding nodularity as well as a 2nd 6 mm pleural-based anterior right middle lobe nodule. Interval resolution of previously described decreasing hilar adenopathy. No new suspicious pulmonary nodules or enlarging pulmonary nodules elsewhere. Findings likely represent a resolving infectious or inflammatory process versus malignancy. However, malignancy cannot be completely excluded at this time period as findings are probably benign and a short interval follow-up chest CT in 6 months is recommended document continued stability versus resolution. Dictated by: Pilo Hightower M.D. on 09/27/2024 at 15:43 Approved by: Pilo Hightower M.D. on 09/27/2024 at 16:00
== END ==
PROVIDERS: PCP Family Medicine; Referring Provider Family Medicine; Visit Provider Family Medicine
DX: J98.4 Other disorders of lung (principal); Z98.82 Breast implant status
CPT/HCPCS: 71250